=== PATIENT | male | born 1975 | race Asian ===

== ENCOUNTER 2024-07-30 17:05 | Emergency (ER) | payer OTHER ==
[~2024-07-30] VITALS: Ht 170.2 cm; Wt 61.2 kg
[2024-07-30 17:30] VITALS: BP 135/104; TEMP 98.3; O2SAT 97
[2024-07-30 18:02] LABS: EOSINOPHILS % (AUTO) 0.2 % (0.0-6.0); HEMATOCRIT 46 % (39-51); LYMPHOCYTES # (AUTO) 1.5 K/uL (0.8-4.8); MEAN CORPUSCULAR HEMOGLOBIN 30 PG (26.0-33.0); MEAN CORPUSCULAR HGB CONC 33 g/dl (31.0-36.0); MEAN CORPUSCULAR VOLUME 90 fL (80-96); MONOCYTES # (AUTO) 0.6 K/uL (0.1-1.30); MONOCYTES % (AUTO) 19.6 % (2.0-12.0); NEUTROPHILS % (AUTO) 32.2 % (43.0-81.0); PLATELET COUNT (AUTO) 254 K/uL (150-450); RED BLOOD CELL COUNT(AUTO) 5.11 MIL/uL (4.5-6.0); RED CELL DISTRIBUTION WIDTH 14.2 % (11.5-15.0); WHITE BLOOD COUNT (AUTO) 3.2 K/uL (4.3-11.0)
[2024-07-30 18:11] LABS: CALCIUM, SERUM 8.8 mg/dL (8.5-10.1); POTASSIUM 3.8 mmol/L (3.5-5.1)
[2024-07-30 22:08] LABS: MONOTEST NEGATIVE (NEGATIVE)
== END 2024-07-30 20:58 | disposition home or self-care (01) ==
LOC: ER 18:20
DX: J02.9 Acute pharyngitis, unspecified (principal); J04.0 Acute laryngitis; R05.9 Cough, unspecified; R06.00 Dyspnea, unspecified; R07.9 Chest pain, unspecified; R49.1 Aphonia; Z20.822 Contact with and (suspected) exposure to COVID-19
CPT/HCPCS: 36415; 71045-TC; 80048-TC; 85025-TC; 86308-TC